=== PATIENT | female | born 1990 | race Two or more races ===

== ENCOUNTER 2022-05-12 14:26 | Emergency (ER) | payer OTHER ==
[~2022-05-12] VITALS: Ht 160 cm; Wt 104.3 kg
[2022-05-12 15:15] VITALS: BP 160/76
== END 2022-05-12 18:47 | disposition home or self-care (01) ==
LOC: ER 14:26
DX: O26.891 Other specified pregnancy related conditions, first trimester (principal); S86.911A Strain of unspecified muscle(s) and tendon(s) at lower leg level, right leg, initial encounter; Z3A.01 Less than 8 weeks gestation of pregnancy; V43.92XA Unspecified car occupant injured in collision with other type car in traffic accident, initial encounter; Y93.89 Activity, other specified; Y92.488 Other paved roadways as the place of occurrence of the external cause; Y99.8 Other external cause status
CPT/HCPCS: 36415; 76801; 84702